=== PATIENT | female | born 1990 | race American Indian/Alaskan Native ===

== ENCOUNTER 2018-02-17 00:54 | Observation (INO) | payer MEDICAID, OTHER ==
[2018-02-17] MEDS ORDERED: Sodium Chloride 0.9% 1,000 ML IV STA (02:15)
[2018-02-17 03:10] LABS: BASO % 0.3 % (0.0-2.0); EOS % 0.3 % (0.0-4.0); HEMOGLOBIN 11.8 g/dL (12.0-16.0); LYMPH # 0.7 K/uL (1.0-4.3); LYMPH % 9.2 % (20.0-40.0); MEAN CELL VOLUME 86.9 fl (81.0-99.0); MEAN CORPUSCULAR HEMOGLOBIN 28.9 pg (27.0-31.0); MEAN CORPUSCULAR HGB CONC 33.2 g/dL (33.0-37.0); MONO # 0.1 K/uL (0.0-0.8); MONO % 1.9 % (0.0-10.0); NEUT # 6.6 K/uL (1.8-7.0); NEUT % 88.3 % (50.0-75.0); PLATELET COUNT 284 K/uL (130-400); RED CELL DISTRIBUTION WIDTH 13.5 % (11.5-14.5); WHITE BLOOD COUNT 7.5 K/uL (4.8-10.8)
[2018-02-17 03:18] LABS: ALB/GLOB RATIO 1.1 (1.0-2.1); ALBUMIN 4.2 g/dL (3.5-5.0); ALT/SGPT 28 U/L (9-52); AST/SGOT 23 U/L (14-36); BLOOD UREA NITROGEN 15 mg/dl (7-17); CALCIUM 9.2 mg/dL (8.4-10.2); GFR AFRICAN-AMERICAN > 60; GFR NON-AFRICAN AMERICAN > 60; LIPASE 94 U/L (23-300)
--- NOTE | 2018-02-17 04:24 | US ---
EXAM: US Abdomen Limited, Right Upper Quadrant EXAM DATE/TIME: 02/17/2018 2:17 AM CLINICAL HISTORY: 28 years old, female; Pain; Abdominal pain; Epigastric; Patient HX: H/o cholelithiasis; Additional info: Ruq pain TECHNIQUE: Real-time ultrasound of the right upper quadrant with image documentation. COMPARISON: Prior right upper quadrant ultrasound of 2016-06-29 13:24 FINDINGS: Gallbladder: Appears mildly dilated. Contains multiple large, shadowing stones, the largest measuring 2 cm. Gallbladder wall is slightly thickened, measuring 3.2 mm (normal less than 3 mm). No pericholecystic fluid. Reportedly negative sonographic Roldan's sign. Common bile duct: Does not appear abnormally dilated, measuring less than 6 mm in diameter. Liver: Within normal limits in appearance. Measures 16 cm in length. Normal flow seen in the main portal vein on color and Doppler imaging. Pancreas: Imaged portions appear unremarkable. Right kidney: Within normal limits in appearance. Measures 11 cm in length. No evidence of hydronephrosis. IMPRESSION: Gallstones, mild gallbladder dilatation, and slight gallbladder wall thickening (3.2 mm). The gallbladder wall thickening could be due to chronic cholecystitis, but early acute cholecystitis is not entirely excluded. No pericholecystic fluid. Recommend clinical correlation. Otherwise negative exam.
[2018-02-17] MEDS ORDERED: Piperacillin/Tazobact 3.375 GM in Sodium Chloride 0.9% 100 ML IV STA (04:52)
--- NOTE | 2018-02-17 05:17 | CP.PCM.CON ---
History of Present Illness - History of Present Illness History of Present Illness: SURGERY CONSULT NOTE FOR DR. MIRELES 28F presents with right upper quadrant pain that started yesterday while at a birthday alliance party when she was eating cake and pizza. Patient states pain radiated to the right back and she has had this pain before 5 years ago. She was told then she had a gallbladder infection. Patient admits to nausea and vomiting once. She denied fevers and chills. States pain medication is helping with the pain. PMH: denies PSH: Denies Social: denies tobacco, alcohol. Admits marijuana use Allergies: flexeril Past Patient History - Past Social History Smoking Status: Never Smoked - GASTROINTESTINAL Hx Gall Bladder Disease: Yes - PSYCHIATRIC Hx Substance Use: No - ANESTHESIA Hx Anesthesia: No Meds Allergies/Adverse Reactions: Allergies Allergy/AdvReac Type Severity Reaction Status Date / Time cyclobenzaprine HCl Allergy URTICARIA Verified 02/17/18 01:16 [From Flexeril] - Medications Medications: Current Medications Piperacillin Sod/Tazobactam (Sod 3.375 gm/ Sodium Chloride) 100 mls @ 100 mls/ hr IV STAT STA PRN Reason: Protocol Stop: 02/17/18 05:51 Physical Exam - Constitutional Appears: Well, Non-toxic, No Acute Distress - Head Exam Head Exam: ATRAUMATIC - ENT Exam ENT Exam: Mucous Membranes Moist - Respiratory Exam Respiratory Exam: Clear to Auscultation Bilateral, NORMAL BREATHING PATTERN - Cardiovascular Exam Cardiovascular Exam: REGULAR RHYTHM, +S1, +S2 - GI/Abdominal Exam GI & Abdominal Exam: Soft, Tenderness (right upper quadrant tenderness). absent : Distended, Firm, Guarding, Rebound, Rigid - Extremities Exam Extremities exam: Negative for: pedal edema, tenderness - Neurological Exam Neurological exam: Alert, Oriented x3 - Psychiatric Exam Psychiatric exam: Normal Affect, Normal Mood - Skin Skin Exam: Dry, Intact, Normal Color, Warm Results - Vital Signs Recent Vital Signs: Last Vital Signs Temp 98.5 F 02/17/18 01:14 Pulse 92 H 02/17/18 01:14 Resp 18 02/17/18 01:14 BP 116/74 02/17/18 01:14 Pulse Ox 100 02/17/18 01:14 - Labs Result Diagrams: 02/17/18 03:04 02/17/18 03:04 Labs: Laboratory Results - last 24 hr 02/17/18 02/17/18 03:04 03:04 WBC 7.5 RBC 4.10 Hgb 11.8 L Hct 35.6 MCV 86.9 MCH 28.9 MCHC 33.2 RDW 13.5 Plt Count 284 MPV 8.0 Neut % (Auto) 88.3 H Lymph % (Auto) 9.2 L [place] % (Auto) 1.9 Eos % (Auto) 0.3 Baso % (Auto) 0.3 Neut # (Auto) 6.6 Lymph # (Auto) 0.7 L [place] # (Auto) 0.1 Eos # (Auto) 0.0 Baso # (Auto) 0.0 Sodium 142 Potassium 3.9 Chloride 103 Carbon Dioxide 27 Anion Gap 16 BUN 15 Creatinine 0.6 L Est GFR ( Amer) > 60 Est GFR (Non-Af Amer) > 60 Random Glucose 120 H Calcium 9.2 Total Bilirubin 0.2 AST 23 ALT 28 Alkaline Phosphatase 53 Total Protein 8.1 Albumin 4.2 Globulin 3.9 Albumin/Globulin Ratio 1.1 Lipase 94 Assessment & Plan - Assessment and Plan (Free Text) Assessment: 28F with Chronic Cholecystitis with acute components Plan: NPO, IVF Pain control, Abx Recommend lap cholecystectomy Patient states she may want to see surgeon in office first Further recs discuss with Dr. David Correia, PGY2
[2018-02-17] MEDS ORDERED: Morphine 4 MG/ML VIAL IVP PRN (05:21)
[2018-02-17] MEDS ORDERED: Piperacillin/Tazobact 3.375 gm Inj IVPB ONE (05:23)
[2018-02-17] MEDS ORDERED: Piperacillin/Tazobact 3.375 GM in Dextrose 5% In Water 100 ML IV STA (05:32)
[2018-02-17 05:42] LABS: BANDS 1 % (0-2); EOSINOPHIL 1 % (0-7); LYMPHOCYTE 11 % (20-50); MONOCYTE 3 % (0-10); NEUTROPHIL 84 % (42-75); TOTAL CELLS COUNTED 100
[2018-02-17 05:43] LABS: PLATELET ESTIMATE NORMAL (NORMAL)
--- NOTE | 2018-02-17 05:49 | ED PDOC ---
HPI: Abdomen Time Seen by Provider: 02/17/18 02:08 Chief Complaint (Nursing): Abdominal Pain Chief Complaint (Provider): Abdominal Pain History Per: Patient History/Exam Limitations: no limitations Onset/Duration Of Symptoms: Hrs (x4) Current Symptoms Are (Timing): Still Present Location Of Pain/Discomfort: RUQ Associated Symptoms: Nausea, Vomiting. denies: Fever, Diarrhea Additional Complaint(s): 28 year old female presents to ED with complaints of abdominal pain x4 hours and has a past medical history of gall bladder disease (last attack 5 years ago) . Patient confirms she is diet-observant, but ate heavy and greasy food for her mother's birthday last night. (+) nausea, vomiting x4 episodes (bilious, non- bloody), and RUQ pain. (-) fever, diarrhea, cough, or SOB. Patient describes the pain as sharp, constant, and radiating to her back. PCP: Allen Apodaca Past Medical History Reviewed: Historical Data Vital Signs: Last Vital Signs Temp 98.6 F 02/17/18 17:00 Pulse 62 02/17/18 17:00 Resp 20 02/17/18 17:00 BP 101/68 02/17/18 17:00 Pulse Ox 97 02/17/18 17:00 - Medical History PMH: Gall Bladder Disease - Surgical History Surgical History: No Surg Hx - Family History Family History: States: Unknown Family Hx - Social History Current smoker - smoking cessation education provided: No Ex-Smoker (has not smoked in the last 12 months): No Alcohol: Occasional Drugs: Denies - Home Medications Home Medications: Ambulatory Orders Medication Instructions Recorded Levofloxacin [Levaquin] 500 mg PO DAILY #10 tablet 02/17/18 Metronidazole [Flagyl] 500 mg PO Q8H #30 tablet 02/17/18 Naproxen 375 mg PO BID #20 tablet 02/17/18 - Allergies Allergies/Adverse Reactions: Allergies Allergy/AdvReac Type Severity Reaction Status Date / Time cyclobenzaprine HCl Allergy URTICARIA Verified 02/17/18 01:16 [From Flexeril] Review of Systems ROS Statement: Except As Marked, All Systems Reviewed And Found Negative Constitutional: Negative for: Fever Respiratory: Negative for: Cough Gastrointestinal: Positive for: Nausea, Vomiting (bilious x4 episodes), Abdominal Pain (RUQ pain). Negative for: Diarrhea Physical Exam - Reviewed Nursing Documentation Reviewed: Yes Vital Signs Reviewed: Yes - Physical Exam Appears: Positive for: Non-toxic, Uncomfortable Skin: Positive for: Normal Color, Warm, Dry ENT: Negative for: Normal ENT Inspection (tacky mucous membranes) Cardiovascular/Chest: Positive for: Regular Rate, Rhythm. Negative for: Murmur Respiratory: Positive for: Normal Breath Sounds. Negative for: Respiratory Distress Gastrointestinal/Abdominal: Positive for: Soft, Tenderness (RUQ/epigastric tenderness), Other ((+) Roldan's sign) Extremity: Positive for: Normal ROM. Negative for: Deformity Neurologic/Psych: Positive for: Alert, Oriented. Negative for: Motor/Sensory Deficits - Laboratory Results Result Diagrams: 02/17/18 03:04 02/17/18 03:04 - ECG O2 Sat by Pulse Oximetry: 100 (RA) Pulse Ox Interpretation: Normal Medical Decision Making Medical Decision Makin Initial impression: RUQ pain, nausea, vomiting Initial plan: * Labs * Blood work * NS IV * Pepcid 20mg IV * Toradol 30mg IV * Zosyn IV * Zofran Inj 4mg IV * BCx * US GALLBLADDER * Re-eval 0423 FINDINGS: Gallbladder: Appears mildly dilated. Contains multiple large, shadowing stones, the largest measuring 2 cm. Gallbladder wall is slightly thickened, measuring 3.2 mm ( normal less than 3 mm). No pericholecystic fluid. Reportedly negative sonographic Roldan's sign. Common bile duct: Does not appear abnormally dilated, measuring less than 6 mm in diameter. Liver: Within normal limits in appearance. Measures 16 cm in length. Normal flow seen in the main portal vein on color and Doppler imaging. Pancreas: Imaged portions appear unremarkable. Right kidney: Within normal limits in appearance. Measures 11 cm in length. No evidence of hydronephrosis. IMPRESSION: Gallstones, mild gallbladder dilatation, and slight gallbladder wall thickening (3.2 mm). The gallbladder wall thickening could be due to chronic cholecystitis, but early acute cholecystitis is not entirely excluded. No pericholecystic fluid. Recommend clinical correlation. Otherwise negative exam. [id number] Labs reviewed: no clinically significant abnormalities. Patient continues to be uncomfortable. Surgery consult called. Patient will be admitted for further treatment under Dr. Apodaca's service. Dx: acute cholecystitis and cholelithiasis Condition: fair Scribe Attestation: Documented by Afsaneh Coburn acting as a scribe Alexander Lott MD. Scribe Attestation: All medical record entries made by the Scribe were at my direction and personally dictated by me. I have reviewed the chart and agree that the record accurately reflects my personal performance of the history, physical exam, medical decision making, and the department course for this patient. I have also personally directed, reviewed, and agree with the discharge instructions and disposition. Disposition - Clinical Impression Clinical Impression: Cholecystitis - Patient ED Disposition Is Patient to be Admitted: Yes Discussed With .: Allen Apodaca (Dr Correia) - Disposition Disposition Time: 04:52 Condition: FAIR - Pt Status Changed To: Hospital Disposition Of: Inpatient (INPATIENT MED SURG) - Admit Certification Admit to Inpatient:: After my assessment, the patient will require hospitalization for at least two midnights. This is because of the severity of symptoms shown, intensity of services needed, and/or the medical risk in this patient being treated as an outpatient.
[2018-02-17] MEDS: Sodium Chloride 0.9% 1,000 ML IV SCH ×2 (08:42→12:27)
[2018-02-17 09:57] LABS: INR 1.2 (0.9-1.2); PARTIAL THROMBOPLASTIN TIME 31.5 Seconds (25.6-37.1); PROTHROMBIN TIME 13.2 Seconds (9.8-13.1)
[2018-02-17] MEDS ORDERED: Piperacillin/Tazobact 3.375 GM in Dextrose 5% In Water 100 ML IVPB SCH (10:00)
--- NOTE | 2018-02-17 11:52 | CP.PCM.HP ---
History of Present Illness - History of Present Illness History of Present Illness: 28 y/o F with PMhx of GB stones presented to ED c/o RUQ pain, vomiting, nausea after heavy meal. Denies fever, melena, hematochezia, CP, SOB, palpitations, dysuria. US of the abd at ED showed cholelithiasis with poss chronic vs acute on chronic cholcystitis and she was admitted, started on IV abx and Sx was consulted. Patient responded well to medical treatment and this morning pain has resolved, denies nausea or vomiting and patient is willing to try foods. Present on Admission - Present on Admission Any Indicators Present on Admission: No Review of Systems - Review of Systems All systems: reviewed and no additional remarkable complaints except - Gastrointestinal Gastrointestinal: Abdominal Pain, Nausea, Vomiting Past Patient History - Past Medical History & Family History Past Medical History?: Yes - Past Social History Smoking Status: Never Smoked - MUSCULOSKELETAL/RHEUMATOLOGICAL Hx Falls: No - GASTROINTESTINAL Hx Gall Bladder Disease: Yes - PSYCHIATRIC Hx Substance Use: No - SURGICAL HISTORY Hx Surgeries: No - ANESTHESIA Hx Anesthesia: No Meds Allergies/Adverse Reactions: Allergies Allergy/AdvReac Type Severity Reaction Status Date / Time cyclobenzaprine HCl Allergy URTICARIA Verified 02/17/18 01:16 [From Flexeril] Physical Exam - Constitutional Appears: Non-toxic, No Acute Distress - Head Exam Head Exam: NORMAL INSPECTION - Eye Exam Eye Exam: EOMI, PERRL - ENT Exam ENT Exam: Mucous Membranes Moist - Neck Exam Neck exam: Positive for: Normal Inspection - Respiratory Exam Respiratory Exam: Clear to Auscultation Bilateral, NORMAL BREATHING PATTERN. absent: Decreased Breath Sounds, Prolonged Expiratory Phase, Rales, Wheezes, Respiratory Distress, Stridor - Cardiovascular Exam Cardiovascular Exam: REGULAR RHYTHM, +S1, +S2. absent: Gallop, Systolic Murmur - GI/Abdominal Exam GI & Abdominal Exam: Normal Bowel Sounds, Soft, Tenderness (Mild epigastric ). absent: Distended, Guarding, Rebound, Rigid - Extremities Exam Extremities exam: Positive for: normal capillary refill, pedal pulses present. Negative for: calf tenderness, pedal edema, tenderness - Back Exam Back exam: absent: CVA tenderness (L), CVA tenderness (R) - Neurological Exam Neurological exam: Alert, Oriented x3, Reflexes Normal - Psychiatric Exam Psychiatric exam: Normal Affect, Normal Mood - Skin Skin Exam: Normal Color, Warm Results - Vital Signs Recent Vital Signs: Last Vital Signs Temp 98.1 F 02/17/18 07:15 Pulse 77 02/17/18 09:24 Resp 18 02/17/18 09:24 BP 96/59 L 02/17/18 07:15 Pulse Ox 98 02/17/18 09:24 - Labs Result Diagrams: 02/17/18 03:04 02/17/18 03:04 Labs: Laboratory Results - last 24 hr 02/17/18 02/17/18 02/17/18 03:04 03:04 04:56 WBC 7.5 RBC 4.10 Hgb 11.8 L Hct 35.6 MCV 86.9 MCH 28.9 MCHC 33.2 RDW 13.5 Plt Count 284 MPV 8.0 Neut % (Auto) 88.3 H Lymph % (Auto) 9.2 L [place] % (Auto) 1.9 Eos % (Auto) 0.3 Baso % (Auto) 0.3 Neut # (Auto) 6.6 Lymph # (Auto) 0.7 L [place] # (Auto) 0.1 Eos # (Auto) 0.0 Baso # (Auto) 0.0 Neutrophils % (Manual) 84 H Band Neutrophils % 1 Lymphocytes % (Manual) 11 L Monocytes % (Manual) 3 Eosinophils % (Manual) 1 Platelet Estimate Normal RBC Morphology Normal PT INR APTT Sodium 142 Potassium 3.9 Chloride 103 Carbon Dioxide 27 Anion Gap 16 BUN 15 Creatinine 0.6 L Est GFR ( Amer) > 60 Est GFR (Non-Af Amer) > 60 Random Glucose 120 H Lactic Acid 1.0 Calcium 9.2 Total Bilirubin 0.2 AST 23 ALT 28 Alkaline Phosphatase 53 Total Protein 8.1 Albumin 4.2 Globulin 3.9 Albumin/Globulin Ratio 1.1 Lipase 94 02/17/18 09:11 WBC RBC Hgb Hct MCV MCH MCHC RDW Plt Count MPV Neut % (Auto) Lymph % (Auto) [place] % (Auto) Eos % (Auto) Baso % (Auto) Neut # (Auto) Lymph # (Auto) [place] # (Auto) Eos # (Auto) Baso # (Auto) Neutrophils % (Manual) Band Neutrophils % Lymphocytes % (Manual) Monocytes % (Manual) Eosinophils % (Manual) Platelet Estimate RBC Morphology PT 13.2 H INR 1.2 APTT 31.5 Sodium Potassium Chloride Carbon Dioxide Anion Gap BUN Creatinine Est GFR ( Amer) Est GFR (Non-Af Amer) Random Glucose Lactic Acid Calcium Total Bilirubin AST ALT Alkaline Phosphatase Total Protein Albumin Globulin Albumin/Globulin Ratio Lipase Assessment & Plan - Assessment and Plan (Free Text) Assessment: Cholecystitis poss chronic with cholelithiasis and biliary colic No White count or fever, CMP unremarkable VS stable Pain resolved C/W IV ABx and fluids Pain control Surgery evaluated patient and patient requests to have Sx as outpatient Advance diet as tolerated as per Sx recs and can be DC if tolerates later today Monitor
[2018-02-17 15:57] VITALS: BP 101/68; PULSE 62; RESP 20; TEMP 98.6
[2018-02-17] MEDS ORDERED: Piperacillin/Tazobact 3.375 GM in Sodium Chloride 0.9% 100 ML IVPB SCH (16:00)
[2018-02-17 21:12] VITALS: O2SAT 100
== END 2018-02-17 18:40 | disposition home or self-care (01) ==
LOC: H.ER 00:54 → H.ERHOLD 04:52 → INTOOBSV 04:52 → H.MEDSURG1 07:52
PROVIDERS: ADMIT Family Medicine; ATTEND Family Medicine
DX: K80.12 Calculus of gallbladder with acute and chronic cholecystitis without obstruction (principal); F12.90 Cannabis use, unspecified, uncomplicated
CPT/HCPCS: 76705; 80053; 81025; 83605; 83690; 85025; 85610; 85730; 87040; 96361; 96365; 96366; 96375; 99285; G0378; J1885; J2405; J2543; J7040